=== PATIENT | male | born 1985 ===

== ENCOUNTER 2017-03-17 06:44 | Emergency (ER) | payer OTHER ==
[2017-03-17 06:56] VITALS: BP 114/76; PULSE 56; RESP 18; TEMP 97.5; O2SAT 99
--- NOTE | 2017-03-17 07:21 | C.PDOC ---
History Of Present Illness 31M c/o itchy rash since yesterday. per his he had same rash last year and doctor here gave him an "injection" which helped. he has been taking benadryl without relief, trouble sleeping due to itching. denies any other sx. denies meds, known allergies, pmh. Time Seen by Provider: 03/17/17 07:20 Chief Complaint (Nursing): Abnormal Skin Integrity Past Medical History Vital Signs: Last Vital Signs Temp 97.5 F L 03/17/17 06:53 Pulse 56 L 03/17/17 06:53 Resp 18 03/17/17 06:53 BP 114/76 03/17/17 06:53 Pulse Ox 99 03/17/17 07:21 Family History: States: Other Other Family History: nc - Social History Hx Alcohol Use: No Hx Substance Use: No - Immunization History Hx Tetanus Toxoid Vaccination: No Hx Influenza Vaccination: No Review Of Systems Constitutional: Negative for: Fever, Chills, Weakness, Malaise ENT: Negative for: Nose Congestion, Mouth Pain, Throat Swelling Cardiovascular: Negative for: Chest Pain Respiratory: Negative for: Cough, Shortness of Breath Gastrointestinal: Negative for: Nausea, Vomiting, Abdominal Pain Genitourinary: Positive for: Rash Neurological: Negative for: Confusion, Altered Mental Status, Headache Physical Exam - Physical Exam Appears: Well, Non-toxic, No Acute Distress Skin: Warm, Dry, No Diaphoretic, No Pale, Rash (scattered haphazard mp rash on arms, torso, legs. no rash on palms or soles. no lesions in the mouth. ), No Jaundice, No Mottled, No Cyanotic, No Ecchymosis Eye(s): bilateral: Normal Inspection, PERRL, EOMI Nose: No Epistaxis Oral Mucosa: Moist Tongue: No Swelling, No Lesions, No Erythema Lips: No Swelling, No Lesions, No Erythema Gingiva: No Erythema, No Ulceration, No Swelling Neck: Normal ROM Cardiovascular: Rhythm Regular Respiratory: No Accessory Muscle Use Neurological/Psych: Oriented x3, Other (no focal deficits) ED Course And Treatment O2 Sat by Pulse Oximetry: 99 Disposition - Disposition Referrals: [facility] [Outside] Disposition: HOME/ ROUTINE Disposition Time: 07:34 Condition: GOOD Additional Instructions: Please follow up with a primary doctor. Return to the ER for any worsening symptoms, sores in your mouth, fever, or for any other concerns. Instructions: Dermatitis (ED) Forms: Gen Discharge Inst Nigerien Print Language: CAPE VERDEAN - Clinical Impression Clinical Impression: Rash
[2017-03-17] MEDS ORDERED: Dexamethasone 4 mg/1 ml ONE (07:39)
== END 2017-03-17 07:52 | disposition home or self-care (01) ==
LOC: C.ER 06:44 → SUPCPDRO 06:44 → C.ER 07:52
DX: R21 Rash and other nonspecific skin eruption (principal)
CPT/HCPCS: 96372; 99283; J1100

== ENCOUNTER 2017-03-18 18:59 | Emergency (ER) | payer OTHER ==
[2017-03-18 19:04] VITALS: BP 114/70; PULSE 75; RESP 16; TEMP 97.8; O2SAT 98
--- NOTE | 2017-03-18 19:20 | C.PDOC ---
History Of Present Illness 31 year old male who presents to the ER with a complaint of an itchy rash throughout his body for the past 3 days. Patient was seen in the ER yesterday and got a shot which made him feel better; however, the symptoms returned this morning. Denies SOB, difficulty swallowing, or any associated symptoms. Time Seen by Provider: 03/18/17 19:06 Chief Complaint (Nursing): Abnormal Skin Integrity History Per: Patient History/Exam Limitations: no limitations Onset/Duration Of Symptoms: Days (3) Current Symptoms Are (Timing): Still Present Quality Of Symptoms: Itching Recent travel outside of the [place]: No Past Medical History Reviewed: Historical Data, Nursing Documentation, Vital Signs Vital Signs: Last Vital Signs Temp 97.8 F 03/18/17 19:02 Pulse 75 03/18/17 19:02 Resp 16 03/18/17 19:02 BP 114/70 03/18/17 19:02 Pulse Ox 98 03/18/17 19:31 - Medical History PMH: No Chronic Diseases Surgical History: No Surg Hx Family History: States: Unknown Family Hx - Social History Hx Alcohol Use: No Hx Substance Use: No - Immunization History Hx Tetanus Toxoid Vaccination: No Hx Influenza Vaccination: No Review Of Systems Constitutional: Negative for: Fever ENT: Negative for: Mouth Swelling, Throat Swelling Respiratory: Negative for: Shortness of Breath Skin: Positive for: Rash Physical Exam - Physical Exam Appears: Non-toxic Skin: Warm, Dry, Rash (Urticarial rash scattered diffusely throughout body, no involvement of the face.) Head: Atraumatic, Normacephalic Eye(s): bilateral: Normal Inspection Nose: Normal, No Flaring Oral Mucosa: Moist Tongue: Normal Appearing, No Swelling Lips: Normal Appearing, No Swelling Throat: Normal, No Erythema, No Drooling, No Mass Neck: Normal ROM Chest: Symmetrical, No Tenderness Cardiovascular: Rhythm Regular, No Murmur Respiratory: Normal Breath Sounds, No Stridor, No Wheezing Extremity: Bilateral: Atraumatic, Normal ROM Neurological/Psych: Oriented x3, Normal Speech Gait: Steady ED Course And Treatment O2 Sat by Pulse Oximetry: 98 (Room air) Pulse Ox Interpretation: Normal Medical Decision Making Medical Decision Making: Impression: 31 year old male with urticaria rash. Plan: * Benadryl * Pepcid * Prednisone Dispo: Instruct to take prednisone daily and benadryl q4-6 hours PRN. Disposition Counseled Patient/Family Regarding: Need For Followup, Rx Given - Disposition Referrals: Gwen Thibodeaux MD [Staff Provider] - Disposition: HOME/ ROUTINE Disposition Time: 19:45 Condition: IMPROVED Additional Instructions: [place] Benadryl 50mg cada 4-6 horas para picazn y erupcin cutnea [place] pepcid diariamente para el efecto antihistamnico [place] Prednisone diariamente para christa reaccin alrgica Aplique crema de cortisona dos veces al da para aliviar el alivio de la picazn Prescriptions: Famotidine [Pepcid] 40 mg PO DAILY #20 tab Hydrocortisone [Cortisone] 28 gm TP BID #1 cream..g. predniSONE [predniSONE Tab] 2 tab PO DAILY #10 tab Instructions: Urticaria (GEN) Print Language: AZERBAIJANI - POA Present On Arrival: None - Clinical Impression Clinical Impression: Urticaria - Scribe Statement The provider has reviewed the documentation as recorded by the Scribjulian Sanders All medical record entries made by the Scribe were at my direction and personally dictated by me. I have reviewed the chart and agree that the record accurately reflects my personal performance of the history, physical exam, medical decision making, and the department course for this patient. I have also personally directed, reviewed, and agree with the discharge instructions and disposition.
== END 2017-03-18 19:45 | disposition home or self-care (01) ==
LOC: C.ER 18:59
DX: L50.9 Urticaria, unspecified (principal)